=== PATIENT | female | born 1965 | race Caucasian/White ===

== ENCOUNTER 2017-06-20 06:32 | Day surgery (SDC) | payer OTHER ==
[2017-06-20] MEDS ORDERED: Lactated Ringers 1,000 ML IV SCH (07:00)
[2017-06-20] MEDS ORDERED: Midazolam 1 MG/ML 2 ML SDV ONE (07:23)
[2017-06-20] MEDS ORDERED: fentaNYL 100 MCG/2 ML SDV ONE (07:23)
[2017-06-20] MEDS ORDERED: Propofol 200 MG/20 ML SDV ONE ×2 (07:23→07:42)
[2017-06-20 09:08] VITALS: BP 105/61
--- NOTE | 2017-06-20 12:26 | OR ---
DATE OF PROCEDURE: 06/20/2017 PREOPERATIVE DIAGNOSIS: Colon cancer screening. POSTOPERATIVE DIAGNOSIS: Unremarkable colonoscopy. PROCEDURE: Colonoscopy to the cecum. SURGEON: Tommy Chance MD. ANESTHESIA: IV anesthesia with monitored anesthesia care. INDICATION: This 52-year-old white female is referred for a colonoscopy for colon cancer screening. She has never had a colonoscopic exam. I counseled her for the procedure including risks and alternatives, and she gave her informed consent to proceed. DESCRIPTION OF PROCEDURE: The patient was placed in the left lateral decubitus position. IV anesthesia was administered by the Anesthesia Service. Time-out was held. A rectal exam was performed which was unremarkable. The flexible video Olympus colonoscope was introduced through her anus, up her rectum, and out her colon all the way to the cecum. Once the cecum was reached, the scope was slowly withdrawn, examining the mucosa throughout. No mucosal abnormalities were noted. The scope was retroflexed in the rectum with the distal rectum showing some minor hemorrhoidal tissue. The scope was straightened and removed. She tolerated the procedure well. Tommy Chance MD /[id number] MTDD
== END 2017-06-20 09:00 | disposition home or self-care (01) ==
LOC: JP.SDS 06:32
PROVIDERS: ATTEND Surgery
DX: Z12.11 Encounter for screening for malignant neoplasm of colon (principal); F41.9 Anxiety disorder, unspecified; Z91.012 Allergy to eggs; F17.210 Nicotine dependence, cigarettes, uncomplicated
CPT/HCPCS: 45378; J2250; J2704; J3010

== ENCOUNTER 2019-11-15 07:37 | Day surgery (SDC) | payer MEDICAID ==
[~2019-11-15 07:37] MED LIST: methylPREDNISolone Acetate 80 MG/ML SDV ONE
[2019-11-15] MEDS ORDERED: Propofol 200 MG/20 ML SDV ONE (07:42)
[2019-11-15] MEDS ORDERED: Midazolam 1 MG/ML 2 ML SDV ONE (07:43)
[2019-11-15] MEDS ORDERED: fentaNYL 100 MCG/2 ML SDV ONE (07:43)
[2019-11-15] MEDS ORDERED: Lidocaine 0.5% 50 ML SDV ONE (07:45)
[2019-11-15] MEDS ORDERED: Nozin Nasal Sanitizer NASBOTH ONE (08:00)
[2019-11-15] MEDS ORDERED: Lactated Ringers 1,000 ML IV SCH (08:00)
[2019-11-15] MEDS ORDERED: ceFAZolin 1 GM in Premix Bag 1 BAG IV ONE (08:00)
[2019-11-15] MEDS: Bupivacaine 0.5% 30 ML SDV ONE ×2 (09:10→09:24)
[2019-11-15] MEDS ORDERED: Acetaminophen/oxyCODONE 325-5 MG Tab PO PRN (10:05)
[2019-11-15 11:25] VITALS: BP 147/96; PULSE 73
--- NOTE | 2019-11-22 20:57 | OR ---
DATE OF PROCEDURE: 11/15/2019 SURGEON: Juan Riggins MD PREOPERATIVE DIAGNOSES: 1. De Quervain stenosing tenosynovitis, left wrist. 2. Trochanteric bursitis, left hip. POSTOPERATIVE DIAGNOSES: 1. De Quervain stenosing tenosynovitis, left wrist. 2. Trochanteric bursitis, left hip. PROCEDURE PERFORMED: 1. Release of first dorsal compartment, left wrist. 2. Trochanteric bursa injection of left hip with cortisone. ANESTHESIA: Hood block with sedation. INDICATIONS: Mireya is a 54-year-old female with a history of progressive pain in the radial aspect of her left wrist for the past several months. She has failed conservative treatment including injection and now presents for release of the extensor tendons over the A1 saad. She has also been having increasing pain in the left hip, greater trochanteric region, difficulty lying on her side at night with tenderness directly over the trochanter. Planned injection into the trochanteric bursa. Risks, benefits, and potential complications of the procedures were discussed. DESCRIPTION OF PROCEDURE: After adequate anesthesia was obtained, the left hand and wrist were prepped and draped in a sterile fashion. A longitudinal incision was made over the radial styloid and carried down through the subcutaneous tissues, taking care to avoid the superficial branch of the radial nerve. Extensor tendons were identified and an incision was made just proximal to the retinaculum over the first dorsal compartment. Immediately upon entering the tendon sheath, fluid was present consistent with the tenosynovitis. Incision was carried distally completely releasing the first dorsal compartment. The contents were inspected. This revealed evidence of inflamed synovium extending into the tunnel. Multiple tendon slips were also present. A small division was noted between two of the tendon slips and this was debrided with an iris scissor. There was no evidence of tendon breakdown or degeneration. Tendon sheath was followed more proximally along the area of the intersection syndrome, which also showed increased synovitis and fluid present. This was decompressed. The wound was then irrigated. The skin was closed with 3-0 Monocryl in a running fashion and Steri-Strips were applied. The skin was infiltrated with 0.25% Marcaine. Light dressing was then placed. While the patient was still under some light sedation, the left hip greater trochanter was palpated. The area was prepped with alcohol and then injected with 80 mg of Depo-Medrol along with 3 mL of 0.5% Marcaine. Adhesive bandage was then applied. The patient tolerated both procedures well. There were no complications. She was taken from the operating room in stable condition. Juan Riggins MD /[id number] MTDD
== END 2019-11-15 11:20 | disposition home or self-care (01) ==
LOC: JP.SDS 07:37
PROVIDERS: ATTEND Specialist
DX: M65.4 Radial styloid tenosynovitis [de Quervain] (principal); M70.62 Trochanteric bursitis, left hip; K21.9 Gastro-esophageal reflux disease without esophagitis; F17.210 Nicotine dependence, cigarettes, uncomplicated; Z91.012 Allergy to eggs
CPT/HCPCS: 20610; 25000; 36415; 80048; 85027; A9270; J0690; J1040; J2001; J2250; J2704; J3010; J3490; J7120